=== PATIENT | male | born 1980 | race Caucasian/White ===

== ENCOUNTER 2017-10-28 10:33 | Emergency (ER) | payer SELFPAY ==
[2017-10-28 10:34] VITALS: BP 152/80; PULSE 63; RESP 18; TEMP 36.9; O2SAT 98; BMI 32.5
--- NOTE | 2017-10-28 10:44 | EKG12_ITS ---
Test Reason : CP/SOTELO Blood Pressure : / mmHG Vent. Rate : 056 BPM Atrial Rate : 056 BPM P-R Int : 142 ms QRS Dur : 094 ms QT Int : 406 ms P-R-T Axes : 057 056 044 degrees QTc Int : 391 ms Sinus bradycardia Otherwise normal ECG Confirmed by ALANA CÁRDENAS, BOB ([id number]), department editor JULY MALDONADO ([id number] on 10/31/2017 1:41:49 PM Referred By: RAMSEY Confirmed By:BOB WARNER MD
--- NOTE | 2017-10-28 10:44 | RAD_ITS ---
STUDY: X-RAY CHEST REASON FOR EXAM: Male, 37 years old. Chest pain TECHNIQUE: Single AP portable view of the chest. COMPARISON: None. FINDINGS: There is hyperinflation of the lungs. Lungs are clear. There is no demonstrated pleural abnormality. Normal size heart. Normal mediastinum and anna. Normal visualized pulmonary arteries. Normal visualized aortic arch and descending thoracic aorta. Normal visualized thoracic spine. Normal visualized ribs, clavicles, and shoulders. There is no demonstrated abnormality of the visualized soft tissue structures of the upper abdomen. RAD/Chest 1 View (Portable) IMPRESSION: Mildly hyperinflated lungs. Can be seen with asthma. Lungs are clear. Electronically Signed: Hector Quiles DO at 11:03 EDT Tel , Service support ,
[2017-10-28 10:46] VITALS: O2SAT 98
[2017-10-28] MEDS: 0.9% Normal Saline 1,000 ML 150 ML IV (10:55)
[2017-10-28 11:00] LABS: Absolute Lymphocyte Count 1.73 X10^3/ul (0.83-4.51); Absolute Neutrophil Count 2.6 X10^3/uL (2.0-7.7); Basophil# 0.02 X10^3/uL; Basophil% 0.4 % (0-1); Eosinophil# 0.24 X10^3/uL; Eosinophils% 4.8 % (0-5); Hematocrit 45.3 % (40-54); Hemoglobin 15.5 g/dl (13.0-16.5); Lymphocyte # 1.73 X10^3/ul (4.0); Lymphocyte % 34.8 % (19-41); Mean Corp Hgb Conc 34.2 g/gl (32-36); Mean Corpuscular Hgb 30.3 pg (27.0-32.0); Mean Corpuscular Volume 88.5 fL (80-94); Mean Platelet Vol. 9.9 fl (6.2-12.0); Neutrophil # 2.58 X10^3/uL (2.7-7.7); Platelet Count 161 K/mm3 (150-450); RBC Distribution Width CV 12.7 % (11.6-14.6); Red Blood Count 5.12 M/mm3 (4.6-6.2)
[2017-10-28 11:03] LABS: POSITIVE COUNT NO; POSITIVE DIFFERENTIAL NO; POSITIVE MORPHOLOGY NO
[2017-10-28 11:12] LABS: Anion Gap 7 (5-15); BUN 16 mg/dL (7-18); BUN/Creat Ratio 12.4 RATIO (10-20); Calcium,Total 9.2 mg/dL (8.5-10.1); Chloride 103 mmol/L (98-107); Creatinine, Serum 1.29 mg/dL (0.70-1.30); EST Glomerular Filtration Rate 67 mL/min (>60); Est Glom Filt Rate - Afr Amer 81 mL/min (>60); Estimated Creatinine Clearance 79.16 ml/min; Glucose 92 mg/dL (74-106); Potassium 3.8 mmol/L (3.5-5.1); Sodium Level 140 mmol/L (136-145)
[2017-10-28 11:13] LABS: D-Dimer Quantitative (DVT/PE) < 0.27 FEU/ug/m (0.27-0.49)
[2017-10-28 11:15] LABS: Erythrocyte Sedimentation Rate 10 mm/hr (0-15)
--- NOTE | 2017-10-28 11:33 | ED.VISSUMM ---
- ER Visit Summary Date of Service: 10/28/17 Chief Complaint: [Chest pain] History of Present Illness: The patient is a 37 M [presents with left-sided chest discomfort that started a week ago. Patient states initially had some pain with breathing only that was sharp stabbing and cannot take his breath away. Over last 24 hours or so he has had more of a dull ache that he rates it may be a 1 or 2 out of 10. Patient denies any exertional dyspnea. Patient has not had any recent travel or surgery. Patient does work out and lifts weights. Patient also moved last week and was moving furniture. Patient denies any fever or cough. Patient denies abdominal pain. Patient also describes a mild headache and neck pain over the last 24 hours that was gradual in onset.] Physical Examination: [HEENT-PERRLA, EOMI. Cranial nerves II through XII grossly intact. TMs clear. Mucous membranes moist. No adenopathy. Cardiovascular-regular rate and rhythm without murmur or ectopy Lungs-clear to auscultation, chest wall stable without crepitus or subcu emphysema. Patient does have some mild tenderness over the left anterior chest wall that somewhat reproduces his pain. Abdomen-normoactive bowel sounds, soft, nontender, no rebound or rigidity, no peritoneal signs. Neuro etbo-cdbflf-fqkh and heel raines testing within normal limits, negative Romberg, negative pronator drift, fundi benign Extremities-intact ?4, normal range of motion, normal pulses, atraumatic] Test Results: [EKG obtained on arrival showed a sinus bradycardia with a ventricular rate of 56 bpm with no acute ST segment changes. There is no evidence for pericarditis. CBC with differential obtained showed a white count of 5.0, hemoglobin 15, hematocrit 45, platelets 161. Chemistries unremarkable. Sed rate was normal at 10. D-dimer was less than 0.27. Troponin was less than 0.015. Chest x-ray showed some hyperinflation otherwise nothing acute with no evidence of pneumothorax.] Emergency Department Course and Treatment: [Patient was given Toradol in the emergency department.] Treatment Plan: [Patient will be given a prescription for naproxen] Disposition: Discharged to home in stable condition.] Impression: [Chest [id number] uncertain] This note was generated with [employer] software. It may contain incorrect words, spelling, and punctuation that were not noted in review of the chart prior to signing ED Disposition - Plan for ED Patient: Chief Complaint: Chest Pain Referrals: Care Physician,No Primary [Primary Care Provider] -
--- NOTE | 2017-10-28 11:36 | ED.DCSUM_ITS ---
- ER Visit Summary Date of Service: 10/28/17 Chief Complaint: [Chest pain] History of Present Illness: The patient is a 37 M [presents with left-sided chest discomfort that started a week ago. Patient states initially had some pain with breathing only that was sharp stabbing and cannot take his breath away. Over last 24 hours or so he has had more of a dull ache that he rates it may be a 1 or 2 out of 10. Patient denies any exertional dyspnea. Patient has not had any recent travel or surgery. Patient does work out and lifts weights. Patient also moved last week and was moving furniture. Patient denies any fever or cough. Patient denies abdominal pain. Patient also describes a mild headache and neck pain over the last 24 hours that was gradual in onset.] Physical Examination: [HEENT-PERRLA, EOMI. Cranial nerves II through XII grossly intact. TMs clear. Mucous membranes moist. No adenopathy. Cardiovascular-regular rate and rhythm without murmur or ectopy Lungs-clear to auscultation, chest wall stable without crepitus or subcu emphysema. Patient does have some mild tenderness over the left anterior chest wall that somewhat reproduces his pain. Abdomen-normoactive bowel sounds, soft, nontender, no rebound or rigidity, no peritoneal signs. Neuro nlwb-etniki-tlkb and heel raines testing within normal limits, negative Romberg, negative pronator drift, fundi benign Extremities-intact ?4, normal range of motion, normal pulses, atraumatic] Test Results: [EKG obtained on arrival showed a sinus bradycardia with a ventricular rate of 56 bpm with no acute ST segment changes. There is no evidence for pericarditis. CBC with differential obtained showed a white count of 5.0, hemoglobin 15, hematocrit 45, platelets 161. Chemistries unremarkable. Sed rate was normal at 10. D-dimer was less than 0.27. Troponin was less than 0.015. Chest x-ray showed some hyperinflation otherwise nothing acute with no evidence of pneumothorax.] Emergency Department Course and Treatment: [Patient was given Toradol in the emergency department.] Treatment Plan: [Patient will be given a prescription for naproxen] Disposition: Discharged to home in stable condition.] Impression: [Chest [id number]-[id number] uncertain] This note was generated with [employer] software. It may contain incorrect words, spelling, and punctuation that were not noted in review of the chart prior to signing ED Disposition - Plan for ED Patient: Chief Complaint: Chest Pain Referrals: Care Physician,No Primary [Primary Care Provider] -
--- NOTE | 2017-10-28 11:36 | ED.DEP ---
ED Disposition - Plan for ED Patient: Chief Complaint: Chest Pain Instructions: ED Chest Pain Pleurisy Prescriptions: Naproxen [Naprosyn] 500 mg PO BID PRN #20 tab Referrals: Care Physician,No Primary [Primary Care Provider] - 5-7 Days
[2017-10-28 11:49] VITALS: BP 121/74; PULSE 55; PULSE 59; RESP 16; O2SAT 95; O2SAT 96
[2017-10-28] MEDS: Ketorolac 30 MG/ML Syringe IV (11:49)
== END 2017-10-28 11:56 | disposition home or self-care (01) ==
PROVIDERS: Emergency Provider Emergency Medicine
DX: R07.89 Other chest pain (principal); R00.1 Bradycardia, unspecified; R51 Headache; Z79.899 Other long term (current) drug therapy
CPT/HCPCS: 71045; 80048; 84484; 85025; 85379; 85652; 93005; 96361; 96374; 99285; J7030; A4216